=== PATIENT | male | born 1995 | race Caucasian/White ===

== ENCOUNTER 2017-10-24 18:21 | Emergency (ER) | payer BC, SELFPAY ==
[2017-10-24 19:27] VITALS: BP 128/78; PULSE 80; RESP 16; TEMP 36.7; O2SAT 99; BMI 19.1
[2017-10-24 19:31] LABS: UTC Influenza A Antigen Negative (Negative); UTC Influenza B Antigen Negative (Negative)
--- NOTE | 2017-10-24 20:25 | HMH.EDUTC ---
[facility] [place]: Viral URI with cough Disposition: Home, Self-Care Condition on Discharge: Good Instructions: DI for Viral Upper Respiratory Infection -- Adult Additional Instructions: * Monitor Temp. Tylenol and/or Ibuprofen as needed. ER if fever is no less than 101 despite alternating Tylenol and Ibuprofen * Encourage fluids, water, Gatorade, powerade, pedialyte if /toddler/or child * Warm salt water gargles for throat irritation *Warm fluids *Sore throat lozenges *Sleep elevated *humidifier or vaporizer Lots of rest Increase fluids, water, Gatorade, powerade *Bromfed may cause drowsiness. Know how it effect you or your child. Before driving, caring for small children or sending your child to school *Your throat swab was sent to lab for culture. Those results area typically sent to your primary care physician. Be sure to follow up in 2-3 days if no improvement so they can review those results and treat if necessary If you dont have primary care I recommend you get one, but in the mean time you will have to return to a walk in clinic Follow up IMMEDIATELY for new or worsening of symptoms OR no noticeable improvement over the next 48-72 hours. 911 immediately for any life threatening symptoms such as chest pain or difficulty breathing Prescriptions: Brompheniramine/Pseudoephed/Dm [Bromfed DM Cough Syrup 5mL] 10 ml PO Q4H PRN #200 syrup PRN Reason: Cough Referrals: Earnest Rosario MD [Primary Care Provider] - Time of Disposition: 20:29 Medical Decision Making - Medical Records Medical records reviewed: Yes: I reviewed the patient's medical records. Vital Signs: 10/24/17 19:27 Temperature 98.1 F Temperature Source Temporal Artery Scan Pulse Rate [Radial] 80 Respiratory Rate 16 Blood Pressure [Right Arm] 128/78 Blood Pressure Mean [Right Arm] 94 Blood Pressure Source [Right Arm] Automatic Cuff Blood Pressure Position [Right Arm] Sitting 02 Sat by Pulse Oximetry 99 Oxygen Delivery Method Room Air - Lab Data Lab Results 10/24/17 19:31: Influenza Type A Ag Negative, Influenza Type B Ag Negative - Artur Inquiry Pt receiving controlled substance: No Artur was queried for this patient: No [facility] [place] - General Stated complaint: body aches, chills Mode of Arrival: Ambulatory Source of Information: Patient Limitations: No Limitations Description of Symptoms (Recalled from Triage Doc. by RN): C/O SORE THROAT, CHILLS, FEVER HEENT Symptoms (Recalled from RN notes): No Resp Symptoms (Recalled from RN notes): No Skin Symptoms (Recalled from RN notes): No MS Symptoms (Recalled from RN notes): No Functional Status (Recalled from RN notes): NA - History of Present Illness Provider Complaint: Patient state that his son had flu State that he is now having flu like symptoms Having body aches, chills sore throat and sinus drainage State that he was worried that he may have the flu and give it back to his infant son - Related Data Previous Rx's Medication Instructions Recorded Brompheniramine/Pseudoephed/Dm 10 ml PO Q4H PRN #200 syrup 10/24/17 [Bromfed DM Cough Syrup 5mL] Allergies Allergy/AdvReac Type Severity Reaction Status Date / Time No Known Allergies Allergy Unverified 09/22/17 14:06 - Worker's Comp Is this a Worker's Comp case?: No [facility] History I have reviewed the patient's past medical history: Yes Medical History: Denies:: Cancer, Diabetes Mellitus Type 1, Diabetes Mellitus Type 2, MRSA Amputation: No - *Social History Smoking Status: Current every day smoker Alcohol Intake: never - Psychiatric History Expresses thoughts of harming self/others: None Suicide Plan Description: No Plan ROS Obtained: Yes All systems reviewed & no additional complaints - Constitutional Constitutional: Reports chills, Reports fever(s) - ENT Ears, Nose, Mouth, and Throat: Reports sore throat Physical Exam - General General appearance: alert, in no appar
--- NOTE | 2017-10-24 20:28 | ED_ITS ---
[facility] [place] [facility] [place] Clinical Impression: Viral URI with cough Disposition: Home, Self-Care Condition on Discharge: Good Instructions: DI for Viral Upper Respiratory Infection -- Adult Additional Instructions: * Monitor Temp. Tylenol and/or Ibuprofen as needed. ER if fever is no less than 101 despite alternating Tylenol and Ibuprofen * Encourage fluids, water, Gatorade, powerade, pedialyte if /toddler/or child * Warm salt water gargles for throat irritation *Warm fluids *Sore throat lozenges *Sleep elevated *humidifier or vaporizer Lots of rest Increase fluids, water, Gatorade, powerade *Bromfed may cause drowsiness. Know how it effect you or your child. Before driving, caring for small children or sending your child to school *Your throat swab was sent to lab for culture. Those results area typically sent to your primary care physician. Be sure to follow up in 2-3 days if no improvement so they can review those results and treat if necessary If you don? t have primary care I recommend you get one, but in the mean time you will have to return to a walk in clinic Follow up IMMEDIATELY for new or worsening of symptoms OR no noticeable improvement over the next 48-72 hours. 911 immediately for any life threatening symptoms such as chest pain or difficulty breathing Prescriptions: Brompheniramine/Pseudoephed/Dm [Bromfed DM Cough Syrup 5mL] 10 ml PO Q4H PRN # 200 syrup PRN Reason: Cough Referrals: Earnest Rosario MD [Primary Care Provider] - Time of Disposition: 20:29 Medical Decision Making - Medical Records Medical records reviewed: Yes: I reviewed the patient's medical records. Vital Signs: 10/24/17 19:27 Temperature 98.1 F Temperature Source Temporal Artery Scan Pulse Rate [Radial] 80 Respiratory Rate 16 Blood Pressure [Right Arm] 128/78 Blood Pressure Mean [Right Arm] 94 Blood Pressure Source [Right Arm] Automatic Cuff Blood Pressure Position [Right Arm] Sitting 02 Sat by Pulse Oximetry 99 Oxygen Delivery Method Room Air - Lab Data Lab Results 10/24/17 19:31: Influenza Type A Ag Negative, Influenza Type B Ag Negative - Artur Inquiry Pt receiving controlled substance: No Artur was queried for this patient: No [facility] [place] [facility] [place] - General Stated complaint: body aches, chills Mode of Arrival: Ambulatory Source of Information: Patient Limitations: No Limitations Description of Symptoms (Recalled from Triage Doc. by RN): C/O SORE THROAT, CHILLS, FEVER HEENT Symptoms (Recalled from RN notes): No Resp Symptoms (Recalled from RN notes): No Skin Symptoms (Recalled from RN notes): No MS Symptoms (Recalled from RN notes): No Functional Status (Recalled from RN notes): NA - History of Present Illness Provider Complaint: Patient state that his son had flu State that he is now having flu like symptoms Having body aches, chills sore throat and sinus drainage State that he was worried that he may have the flu and give it back to his son - Related Data Previous Rx's Medication Instructions Recorded Brompheniramine/Pseudoephed/Dm 10 ml PO Q4H PRN #200 syrup 10/24/17 [Bromfed DM Cough Syrup 5mL] Allergies Allergy/AdvReac Type Severity Reaction Status Date / Time No Known Allergies Allergy Unverified 09/22/17 14:06 - Worker's Comp Is this a Worker's Comp case?: No [facility] History I have reviewed the patient's pa
[2017-10-24 20:36] VITALS: BP 150/80; PULSE 74; RESP 14; TEMP 36.7; O2SAT 99
== END 2017-10-24 20:37 | disposition home or self-care (01) ==
PROVIDERS: Emergency Provider Nurse Practitioner; PCP Family Medicine
DX: J06.9 Acute upper respiratory infection, unspecified (principal); F17.200 Nicotine dependence, unspecified, uncomplicated
CPT/HCPCS: 87804; 99201

== ENCOUNTER 2020-06-28 18:28 | Emergency (ER) | payer MEDICAID, SELFPAY ==
[2020-06-28 18:39] VITALS: BP 121/55; PULSE 55; RESP 21; TEMP 36.6; O2SAT 98; BMI 19.6
--- NOTE | 2020-06-28 18:48 | HMH.EDUTC ---
[facility] [place] Impression: Dental abscess Disposition: Home, Self-Care Condition on Discharge: Good Instructions: Tooth Abscess Additional Instructions: Warm compresses on jaw area may help with pain and swelling Over the counter Motrin and/or Tylenol for fever and pain Make appointment with Dentist as soon as possible for further treatment and evaluation Return if needed Straight to ER if any life threatening symptoms Prescriptions: Amoxicillin/Potassium Clav [Augmentin 875-125 Tablet] 1 tab PO Q12H 7 Days #14 tab Transmission Status: Pending to [facility] #[id number] Referrals: Earnest Rosario MD [Primary Care Provider] - As needed Ezequiel Escobar [Referring] - Medical Decision Making - Artur Inquiry Pt receiving controlled substance: No Artur was queried for this patient: No Vital Signs: 06/28/20 18:39 Temperature 97.9 F Temperature Source Oral Pulse Rate [Right Brachial] 55 L Respiratory Rate 21 Blood Pressure [Right Arm] 121/55 L Blood Pressure Mean [Right Arm] 77 Blood Pressure Source [Right Arm] Automatic Cuff Blood Pressure Position [Right Arm] Sitting 02 Sat by Pulse Oximetry 98 Oxygen Delivery Method Room Air [facility] [place] - General Stated complaint: possible infection on left inside of mouth Time Seen by Provider: 06/28/20 18:48 Mode of Arrival: Ambulatory Source of Information: Patient Limitations: No Limitations Description of Symptoms (Recalled from Triage Doc. by RN): PATIENT C/O INFECTION TO LEFT SIDE OF MOUTH X 1 WEEK HEENT Symptoms (Recalled from RN notes): Yes Resp Symptoms (Recalled from RN notes): No Skin Symptoms (Recalled from RN notes): No MS Symptoms (Recalled from RN notes): No Functional Status (Recalled from RN notes): WNL - History of Present Illness Provider Complaint: Patient states that he has multiple broken and rotted teeth on his bottom jawline States that he has been trying to get into the dentist but his insurance wont cover it so he hasnt been able to see anyone for it States that he noticed he was starting to have some swelling and redness again in his left lower jaw area so he come in to get it checked - Related Data Previous Rx's Medication Instructions Recorded Amoxicillin/Potassium Clav 1 tab PO Q12H 7 Days #14 tab 06/28/20 [Augmentin 875-125 Tablet] Allergies Allergy/AdvReac Type Severity Reaction Status Date / Time No Known Allergies Allergy Unverified 09/22/17 14:06 - Worker's Comp Is this a Worker's Comp case?: No [facility] History - Hepatitis A Screen Drug use history?: No High risk sexual behaviors?: No History of sexually transmitted infection?: No Currently employed?: No Childcare worker?: No Do you have indoor plumbing?: Yes Do you have electricity?: Yes Attestation statement:: This patient has been screened for Hepatitis A risk factors. I have reviewed the patient's past medical history: Yes Medical History: Denies:: Cancer, Diabetes Mellitus Type 1, Diabetes Mellitus Type 2, MRSA Amputation: No - Social History Smoking Status: Current every day smoker # Packs/Day (cigarettes): 1 Alcohol Intake: never Alcohol Intake Frequency:: holidays/special occasions only Substance Use Type: marijuana Occupational Status: other ROS Obtained: Yes All systems reviewed & no additional complaints, Yes Systems reviewed as appropriate & no additional complaints - Constitutional Constitutional: Reports system reviewed and no additional complaints, except as docu, Denies fever(s) Physical Exam - General General appearance: alert, in no apparent distress - Expanded ENT Exam Teeth exam: Present: other (Multiple broken and decaying teeth noted on left lower jaw with redness and swelling noted in gum area) - Respiratory Respiratory exam: Present: normal lung sounds bilaterally. Absent: respiratory distress - Cardiovascular Cardiovascular exam: Present: regular rate, normal rhythm. Absent: JVD - Abdominal Exam
[2020-06-28 18:55] VITALS: BP 121/55; PULSE 55; RESP 21; TEMP 36.6; O2SAT 98
== END 2020-06-28 18:58 | disposition home or self-care (01) ==
PROVIDERS: Emergency Provider Nurse Practitioner; PCP Family Medicine
DX: K04.7 Periapical abscess without sinus (principal); K02.9 Dental caries, unspecified; F17.210 Nicotine dependence, cigarettes, uncomplicated
CPT/HCPCS: 99201

== ENCOUNTER 2020-09-11 11:45 | Emergency (ER) | payer MEDICAID, SELFPAY ==
[2020-09-11 12:05] VITALS: BP 123/78; PULSE 100; RESP 18; TEMP 36.7; O2SAT 99; BMI 19.6
--- NOTE | 2020-09-11 12:11 | HMH.EDUTC ---
[facility] [place] Clinical Impression: URI (upper respiratory infection) Qualifiers: URI type: unspecified URI Qualified Code(s): J06.9 - Acute upper respiratory infection, unspecified Disposition: Home, Self-Care Condition on Discharge: Good Instructions: DI for Sinusitis, Sinusitis Additional Instructions: *Monitor Temp, Over the counter Motrin or Tylenol as directed/as needed Tylenol every 4 hours and Motrin every 6 hours (as long as your family doctor has told you that you can take it) for fever or pain. and straight to ER if unable to lower temp less than 101.0 after medication given *Warm salt water gargles may help to soothe the throat *Throat Lozenges *Warm fluids like tea with honey may help to soothe the throat *Sleep elevated *Humidifier/Vaporizer Follow up IMMEDIATELY for new or worsening symptoms or no Noticeable improvement over the next 48-72 hours. 911 for difficulty breathing or swallowing * Prescriptions: Azithromycin [Z-Drew 250mg Tab] 250 mg PO DIRECTED #6 tab Transmission Status: Pending to [facility] Referrals: Earnest Rosario MD [Primary Care Provider] - As needed Forms: Work/School Release Time of Disposition: 12:24 Medical Decision Making - Artur Inquiry Pt receiving controlled substance: No Artur was queried for this patient: No Vital Signs: 09/11/20 12:05 Temperature 98.0 F Temperature Source Oral Pulse Rate [Radial] 100 H Respiratory Rate 18 Blood Pressure [Right Arm] 123/78 Blood Pressure Mean [Right Arm] 93 Blood Pressure Source [Right Arm] Automatic Cuff Blood Pressure Position [Right Arm] Sitting 02 Sat by Pulse Oximetry 99 Oxygen Delivery Method Room Air [facility] [place] HPI - General Stated complaint: Pain in Rt side Time Seen by Provider: 09/11/20 12:11 Mode of Arrival: Ambulatory Source of Information: Patient Limitations: No Limitations Description of Symptoms (Recalled from Triage Doc. by RN): COUGH, RIB PAIN HEENT Symptoms (Recalled from RN notes): Yes Resp Symptoms (Recalled from RN notes): No Skin Symptoms (Recalled from RN notes): No MS Symptoms (Recalled from RN notes): No Functional Status (Recalled from RN notes): WNL - History of Present Illness Provider Complaint: Patient state that he has been seen recently at [facility] was dx with pleurisy and was given Naproxen and steriods State that he is still having some pain on and off with cough but now having yellowish colored mucous from his nose like he had before with sinus infection States that today his sinus pressure was worse so he came in - Related Data Previous Rx's Medication Instructions Recorded Amoxicillin/Potassium Clav 1 tab PO Q12H 7 Days #14 tab 06/28/20 [Augmentin 875-125 Tablet] Azithromycin [Z-Drew 250mg Tab] 250 mg PO DIRECTED #6 tab 09/11/20 Allergies Allergy/AdvReac Type Severity Reaction Status Date / Time No Known Allergies Allergy Unverified 09/22/17 14:06 - Worker's Comp Is this a Worker's Comp case?: No [facility] History - Hepatitis A Screen Drug use history?: No High risk sexual behaviors?: No History of sexually transmitted infection?: No Currently employed?: No Childcare worker?: No Do you have indoor plumbing?: Yes Do you have electricity?: Yes Attestation statement:: This patient has been screened for Hepatitis A risk factors. I have reviewed the patient's past medical history: Yes Medical History: Denies:: Cancer, Diabetes Mellitus Type 1, Diabetes Mellitus Type 2, MRSA Amputation: No - Social History Smoking Status: Current every day smoker Tobacco Type: cigarettes # Packs/Day (cigarettes): 1 Alcohol Intake: never Alcohol Intake Frequency:: holidays/special occasions only Substance Use Type: marijuana Occupational Status: employed ROS Obtained: Yes All systems reviewed & no additional complaints, Yes Systems reviewed as appropriate & no additional complaints - Constitutional Constitutional: Reports system r
[2020-09-11 13:06] VITALS: BP 123/78; PULSE 100; RESP 18; TEMP 36.7; O2SAT 99
== END 2020-09-11 13:07 | disposition home or self-care (01) ==
PROVIDERS: Emergency Provider Nurse Practitioner; PCP Family Medicine
DX: J06.9 Acute upper respiratory infection, unspecified (principal); F17.210 Nicotine dependence, cigarettes, uncomplicated
CPT/HCPCS: 99201

== ENCOUNTER 2021-03-19 22:31 | Emergency (ER) | payer MEDICAID, SELFPAY ==
[2021-03-19 22:49] VITALS: BP 147/49; PULSE 72; RESP 18; TEMP 36.8; O2SAT 97; BMI 19.6
[2021-03-19 23:01] VITALS: BP 90/67; PULSE 70; O2SAT 97
--- NOTE | 2021-03-19 23:02 | HMH.EDDENT ---
ED Disposition Clinical Impression: Pain, dental Disposition: Home, Self-Care Condition on Discharge: Good Instructions: DI for Dental Pain Additional Instructions: kep dental appt Referrals: Earnest Rosario MD [Primary Care Provider] - - Critical Care Critical Care Time: No Attestation: On 03/19/21, the high probability of a clinically significant, sudden or life threatening deterioration of the following system(s) required my full and direct attention, intervention and personal management. The time I documented below is in addition to time spent performing reported procedures but includes the following listed in this critical care notation. Medical Decision Making - Medical Records Medical records reviewed: Yes: I reviewed the patient's medical records. - Artur Inquiry Pt receiving controlled substance: No Vital Signs: 03/19/21 22:49 Temperature 98.2 F Temperature Source Oral Pulse Rate [Right] 72 Respiratory Rate 18 Blood Pressure [Right Arm] 147/49 H Blood Pressure Mean [Right Arm] 81 Blood Pressure Source [Right Arm] Automatic Cuff Blood Pressure Position [Right Arm] Sitting 02 Sat by Pulse Oximetry 97 Oxygen Delivery Method Room Air [facility] HPI - General Chief complaint: Dental/Oral Stated complaint: Toothache Time Seen by Provider: 03/19/21 23:02 Mode of Arrival: Ambulatory Source of Information: Patient, Medical Record Limitations: No Limitations Description of Symptoms (Recalled from ER Triage Doc. by RN): Pt states he has a dental appointment on thursday, but states the pain to his left lower molar is to bad to wait. Pt has a single molar left on the right lower jaw and on inspecting it appears decayed. - History of Present Illness HPI Narrative: pt with acute dental pain Complaint: tooth pain Onset (ago): day(s) Duration: constant Severity: moderate Relieving factors: NSAIDs Context: history of dental caries Treatment prior to arrival: none - Related Data Previous Rx's Medication Instructions Recorded Amoxicillin/Potassium Clav 1 tab PO Q12H 7 Days #14 tab 06/28/20 [Augmentin 875-125 Tablet] Azithromycin [Z-Drew 250mg Tab] 250 mg PO DIRECTED #6 tab 09/11/20 Allergies Allergy/AdvReac Type Severity Reaction Status Date / Time No Known Allergies Allergy Unverified 09/22/17 14:06 [facility] History - Hepatitis A Screen Drug use history?: No High risk sexual behaviors?: No History of sexually transmitted infection?: No Currently employed?: No Childcare worker?: No Do you have indoor plumbing?: Yes Do you have electricity?: Yes Attestation statement:: This patient has been screened for Hepatitis A risk factors. I have reviewed the patient's past medical history: Yes Medical History: Denies:: Cancer, Diabetes Mellitus Type 1, Diabetes Mellitus Type 2, MRSA Amputation: No - Social History Smoking Status: Current every day smoker Tobacco Type: cigarettes # Packs/Day (cigarettes): 1 Alcohol Intake: never Alcohol Intake Frequency:: holidays/special occasions only Substance Use Type: marijuana Occupational Status: employed ROS Obtained: Yes All systems reviewed & no additional complaints - Constitutional Constitutional: Denies fever(s) - Eyes Eyes: Denies change in vision - ENT Ears, Nose, Mouth, and Throat: Reports as per HPI, Reports dental pain - Cardiovascular Cardiovascular: Denies chest pain - Respiratory Respiratory: Denies dyspnea - Gastrointestinal Gastrointestingal: Denies: dysphagia - Genitourinary Male Genitourinary: Denies hematuria - Musculoskeletal Musculoskeletal: Denies joint pain - Integumentary/Breasts Skin/Breast: Denies rash - Neurologic Neurologic: Denies tingling/numbness/burning sensations, Denies seizure-like activity Physical Exam - General General appearance: alert - Head Head exam: normocephalic - Eye Eye exam: Present: PERRL, EOMI - ENT ENT exam: Present: mucous membranes mo
[2021-03-19 23:12] VITALS: BP 102/64; PULSE 70; RESP 16; TEMP 36.8; O2SAT 97
== END 2021-03-19 23:15 | disposition home or self-care (01) ==
PROVIDERS: Emergency Provider Emergency Medicine; PCP Family Medicine
DX: K08.89 Other specified disorders of teeth and supporting structures (principal); K02.9 Dental caries, unspecified; F17.210 Nicotine dependence, cigarettes, uncomplicated
CPT/HCPCS: 99281

== ENCOUNTER 2024-06-09 07:13 | Emergency (ER) | payer OTHER, SELFPAY ==
[2024-06-09 07:22] VITALS: BP 128/78; PULSE 56; RESP 14; TEMP 36.5; O2SAT 100; BMI 19.1
[2024-06-09 07:30] VITALS: BP 118/66; PULSE 48; O2SAT 99
--- NOTE | 2024-06-09 07:39 | PC.NURSE ---
Dr. Archuleta at [facility] for pt eval
[2024-06-09 07:45] VITALS: BP 118/66; PULSE 49; O2SAT 100
--- NOTE | 2024-06-09 07:56 | HMH.EDGENADL ---
Discharge Plan Disposition Patient Disposition: Home, Self-Care Chief Complaint: Skin/Abscess/Foreign Body Prescriptions Prescriptions: No Action amoxicillin-pot clavulanate 1 EACH tablet 1 tab PO Q12H 7 Days Qty: 14 0RF azithromycin 250 MG tablet 250 mg PO DIRECTED Qty: 6 0RF Rx Instructions: Take two (2) tablets on day #1, then one (1) tablet day #2 thru #5 Referrals Follow up/Referrals: Earnest Rosario MD [Primary Care Provider] - See instructions Activity Restrictions/Add. Instructions Additional Instructions/Restrictions: Call your family doctor to establish care for this visit to the emergency department and schedule follow-up within 48 hours to ensure improvement. If you have any worsening of your condition or any other concerning signs or symptoms, return to the emergency department or your primary care doctor for further evaluation. Swelling and redness can continue to get worse over the next 48 to 72 hours. If symptoms progress beyond 3 days from now on 06/12, return to the emergency department promptly for further evaluation. Clinical Impressions Clinical Impression: Cellulitis of hand, right Instructions Patient Instructions: DI for Skin Abscess Print Language Print Language: Urdu Discharge ED Provider: Toñito Archuleta General Adult HPI General Chief complaint: Skin/Abscess/Foreign Body Stated complaint: redness and swelling to R hand and arm/insect bite Time Seen by Provider: 06/09/24 07:31 Mode of Arrival: Ambulatory Source of Information: Patient Limitations: No Limitations Description of Symptoms (Recalled from ER Triage Doc. by RN): pt states he pulled a tick from between his L index finger and middle finger. pt states he then made a small cut to clean it out. pt now presents with errythema and edema to his L hand. pt states it has had purulent drainage. History of Present Illness HPI narrative: Please note that above description of symptoms, in this electronic medical record under categorization of recalled from ER triage doctor by RN are reflective of an initial nursing assessment, however, is not reflective of my full history and physical exam that was personally taken and clarified. Consequentially, this preceding description of symptoms, which may include the patient's categorized chief complaint in the EMR, do not reflect my personal clinical impression, and the ultimate description of history of present illness and patient stated complaints should be deferred to this section of the note. Unless stated otherwise or congruent with this section of the note, additional signs, symptoms, or incongruence should be interpreted as inaccurate with my clinical impression. Related Data Previous Rx's ?Medication ?Instructions ?Recorded amoxicillin 875 mg-potassium 1 tab PO Q12H 7 days #14 tabs 06/28/20 clavulanate 125 mg tablet azithromycin 250 mg tablet 250 mg PO DIRECTED #6 tabs 09/11/20 Allergies Allergy/AdvReac Type Severity Reaction Status Date / Time No Known Allergies Allergy Verified 06/09/24 07:28 [facility] Disclaimer: The information contained in this section may have been updated after the patient was seen, as this information can be updated by other users. Social History Smoking Status: Current every day smoker tobacco type: cigarettes packs per day: 1 second hand exposure: Yes alcohol intake: never substance use type: marijuana current occupational status: employed Travel in the last 8 weeks: None ROS Obtained: Yes All systems reviewed & no additional complaints except as documented Physical Exam General General appearance: alert Head Head exam: atraumatic and normocephalic Eye Eye exam: Present normal appearance, PERRL and EOMI Neck Neck exam: Present normal inspection, full ROM and trachea midline Respiratory Respiratory exam: Absent respiratory distress, wheezes, stridor, accessory muscle use or prolonged expiratory phase Cardiovascular Cardiovascular exam: Present other (Pulses equal symmetric in upper and lower extremities) Abdominal Exam Abdominal exam: Present soft; Absent distention, tenderness or pulsatile mass Extremities Exam Extremities exam: Present other (Per MDM); Absent edema Neurological Exam Neurological exam: Present alert, oriented X3 and CN II-XII intact; Absent motor sensory deficit Skin Skin exam: Present warm and dry; Absent diaphoresis or erythema Medical Decision Making Medical Records Medical records reviewed: Yes I reviewed the patient's medical records. Artur Inquiry Pt receiving controlled substance: No Artur was queried for this patient: No Vital Signs: 06/09/24 07:22 06/09/24 07:30 06/09/24 07:45 Temperature 97.7 F Temperature Source Oral Pulse Rate 48 L 49 L Pulse Rate [Left] 56 L Respiratory Rate 14 Blood Pressure 118/66 118/66 Blood Pressure [Right Arm] 128/78 Blood Pressure Mean [Right Arm] 94 Blood Pressure Source [Right Arm] Automatic Cuff Blood Pressure Position [Right Arm] Sitting 02 Sat by Pulse Oximetry 100 99 100 Oxygen Delivery Method Room Air Room Air 06/09/24 09:21 Temperature Temperature Source Pulse Rate 55 L Pulse Rate [Left] Respiratory Rate Blood Pressure 127/74 Blood Pressure [Right Arm] Blood Pressure Mean [Right Arm] Blood Pressure Source [Right Arm] Blood Pressure Position [Right Arm] 02 Sat by Pulse Oximetry 100 Oxygen Delivery Method Room Air Lab Data Lab Results 06/09/24 07:51: WBC 5.7, RBC 4.73, Hgb 14.2, Hct 44.7, MCV 94.5 H, MCH 30.0, MCHC 31.7 L, RDW 13.7, Plt Count 292, MPV 7.9, Neut % (Auto) 45.7, Lymph % (Auto) 40.7, [place] % (Auto) 5.2, Eos % (Auto) 7.0, Baso % (Auto) 1.4, Neut # (Auto) 2.6, Lymph # (Auto) 2.3, [place] # (Auto) 0.3, Eos # (Auto) 0.4, Baso # (Auto) 0.1, Sodium 138, Potassium 3.7, Chloride 105, Carbon Dioxide 28, Anion Gap 8.7, BUN 14, Creatinine 1.00, Estimated Creat Clear 114, Estimated GFR 88, Est GFR ( Amer) 106, Glucose 109 H, Calcium 9.4, Total Bilirubin 1.0, AST 27, ALT 23, Alkaline Phosphatase 48, Total Creatine Kinase 112, Total Protein 7.4, Albumin 4.8, Globulin 2.6, Albumin/Globulin Ratio 1.8 06/09/24 07:51 06/09/24 07:51 Orders (Tests/Meds): ED MEDICATIONS Discontinued Medications Generic Name Dose Route Start Last Admin Trade Name Freq PRN Reason Stop Dose Admin Dalbavancin 1,500 mg/ Dextrose 250 mls @ 500 mls/hr 06/09/24 08:17 06/09/24 09:14 IV 06/09/24 08:18 500 mls/hr ONCE ONE Administration ORDERS Category Date Time Status POCUS Point of Care (ER Only) Stat Exams 06/09/24 07:43 Completed CBC w/Auto Diff [Complete Blood Count Auto Diff] Stat Lab 06/09/24 07:51 Completed CK [Creatine Kinase] Stat Lab 06/09/24 07:51 Completed CMP [Comprehensive Metabolic Panel] Stat Lab 06/09/24 07:51 Completed Medical Decision Narrative: 28-year-old male no relevant medical history presenting with right hand swelling. Patient states that 2 nights ago on 06/07/2024, he pulled a small bug out of the web of his right second and third digit. States he thought it may be a tick, unsure because it was so small, black, pinpoint that he could barely tell what it was. Was not on there more than a few hours. Has not been having fevers, chills, nausea, vomiting, etc., but since yesterday, the swelling has extended from MCPs across palm and toward the wrist. Minimally tender, just swollen. He took 1 Augmentin yesterday, 06/08 in the PM hoping it would help, it did not. No other trauma to the area, or other relevant history. History was obtained via conversation with patient. On arrival, patient hemodynamically stable, alert, oriented x4, appropriate, GCS 15, moving all extremities spontaneously, pupils equal and reactive to light. Full physical exam performed and significant for very well-appearing male no acute distress. Right hand is swollen, not fusiform. Does have edema primarily on dorsal aspect of palm extending from 2nd through 4th metacarpals up toward wrist. Minimal swelling proximal to the wrist. Range of motion of digits intact. Compartments are soft. Distal capillary refill within normal limits, distal neurologic exam within normal limits as well. Differential includes cellulitis, abscess, compartment syndrome, necrotizing soft tissue infection, among others. Patient placed on continuous cardiac monitoring and continuous pulse ox with initial blood pressure 128/78, heart rate 56, saturation 100% on room air. Patient was given 1500 mg dalbavancin for symptomatic management and correction of underlying abnormalities. Workup independently interpreted and significant for nonactionable CBC, chemistry, or CK. On independent interpretation of imaging, soft tissue edema without evidence of gas. No evidence of loculated fluid collection or abscess on bedside [id number] ultrasound. Because of this, no formal imaging was deemed necessary. Because patient at baseline without signs or symptoms of clinical decompensation, deemed appropriate for discharge. Results were relayed to patient who voiced understanding and were agreeable to outpatient management and follow up. I discussed my clinical impression with patient and answered all questions. At this time, the evidence for any other entities in the differential is insufficient to warrant any further testing or ED observation. This was explained as well. Advisory was given that persistent or worsening symptoms require further evaluation. I confirmed the understanding of this discussion. Manager Of Creative Services disclaimer Much of this encounter note is an electronic honing machine operator semiautomatic spoken language to printed text. Electronic honing machine operator semiautomatic of the spoken language may permit errors. Although I have reviewed the note, some errors may still exist. Procedures Limited Ultrasound Indication:: Limited soft tissue ultrasound Indication: Right hand swelling after bug bite Identified structures: Location: Right and Findings: Subcutaneous fat stranding, cobblestoning without loculated fluid collection. Nontender sonographic exam. No evidence of gas Impression: Cellulitis of the right hand Images were saved to permanent archive The study was technically adequate Soft Tissue CPT Codes: CPT Neck: 19689-22 CPT Upper extremity: 01983-39 CPT Axilla: 84885-72 CPT Chest wall: 37646-27 CPT Breast: 46649-65-DE/LT (complete), 07476-34-YD/LT (limited), CPT Upper Back: 07446-51 CPT Lower Back: 17197-40 CPT Abdominal Wall: 45296-24 CPT Pelvic Wall: 39512-22 CPT Lower Extremity: 24547-15 CPT Other Soft Tissue: 30741-94 This study was performed by me, and I personally interpreted all images/videos. Based on my clinical judgement, these images were adequate and did not necessitate further imaging. Critical Care Critical Care Time Critical Care Time: No
[2024-06-09 08:03] LABS: Basophils # 0.1 K/mm3 (0-0.2); Basophils % 1.4 % (0.1-2.0); Eosinophils # 0.4 K/mm3 (0.0-0.4); Hematocrit 44.7 % (42.0-52.0); Hemoglobin 14.2 g/dL (14.1-18.0); Lymphocytes # 2.3 K/mm3 (0.7-4.5); Lymphocytes % 40.7 % (10-50); Mean Corpuscular HGB Conc 31.7 g/dL (31.8-35.4); Mean Corpuscular Volume 94.5 fl (80-94); Mean Platelet Volume 7.9 fl (7.4-10.4); Monocytes # 0.3 K/mm3 (0.1-1.0); Monocytes % 5.2 % (1.7-9.3); Neutrophils # 2.6 K/mm3 (1.8-7.8); Neutrophils % 45.7 % (37.0-80.0); Platelet Count 292 K/mm3 (142-424); Red Blood Count 4.73 M/mm3 (4.60-6.20); Red Cell Distribution Width 13.7 % (11.5-17.5); White Blood Count 5.7 K/mm3 (4.8-10.8)
[2024-06-09 08:13] LABS: Albumin Level 4.8 g/dl (3.5-5.0); Chloride 105 mmol/L (98-107); Potassium 3.7 mmoL/L (3.5-5.1); Sodium 138 mmol/L (136-145)
[2024-06-09 08:16] LABS: Alanine Aminotransferase 23 U/L (12-78); Albumin/Globulin Ratio 1.8 (1.1-1.8); Alkaline Phosphatase 48 U/L (38-126); Anion Gap 8.7 mEq/L (5-15); Aspartate Amino Transferase 27 U/L (17-59); Blood Urea Nitrogen 14 mg/dl (9-20); Calcium 9.4 mg/dl (8.4-10.2); Carbon Dioxide 28 mmol/L (22.0-30.0); Creatine Kinase 112 U/L (55-170); Creatinine Clearance Estimated 114 mL/min (50-200); Estimated Glomerular Filt Rate 88 ml/min (>60); GFR (African American) 106 ML/MIN (>60); Globulin 2.6 g/dL (1.3-3.2); Glucose 109 mg/dl (74-100); Total Protein,Serum 7.4 g/dl (6.3-8.2)
[2024-06-09] MEDS: DALBAVANCIN HCL 1,500 MG in DEXTROSE 5 % IN WATER 250 ML 500 MG IV (09:14)
[2024-06-09 09:21] VITALS: BP 127/74; PULSE 55; O2SAT 100
[2024-06-09 09:43] VITALS: BP 110/74; PULSE 51; RESP 18; TEMP 36.9; O2SAT 100
== END 2024-06-09 09:59 | disposition home or self-care (01) ==
PROVIDERS: Emergency Provider Emergency Medicine; PCP Family Medicine
DX: L03.113 Cellulitis of right upper limb (principal); S60.56 Insect bite (nonvenomous) of hand; W57.XXXS Bitten or stung by nonvenomous insect and other nonvenomous arthropods, sequela; F17.210 Nicotine dependence, cigarettes, uncomplicated; Y92.9 Unspecified place or not applicable
CPT/HCPCS: 80053; 82550; 85025; 96365; 99285; J0875; J7060

== ENCOUNTER 2025-07-29 04:41 | Emergency (ER) | payer OTHER, SELFPAY ==
--- OUTSIDE RECORDS SUMMARY | 2025-07-29 04:47 | XMS_ITS | Encounter Summary ---
Author Organization [employer] ([place], [place], [place], [place]) Address [address] [place] [address] Care Team Providers Care Ob/Gyn Physician Name Role Phone Unavailable Primary Care Provider Unavailabl e Encounter Details Date Type Department Care Team (Late st Contact Info) Description 09/04/[address] [facility] [place] [facility] [place] [address] ProviderTroy MD [facility] [place] [address] Social History Tobacco Use Types Packs/Day Years Used Date Smoking Tobacco: Never Assessed Sex and Gender Information Value Date Recorded Sex Assigned at Male 04/03/2022 5:53 PM CDT Legal Sex Male 7:15 PM CDT Gender Identity Male 04/03/2022 5:53 PM CDT Sexual Orientation Not on file documented as of this encounter Miscellaneous Notes * Cerner Conversion Note - Troy Choi MD - 09/04/2020 8:39 AM INSTALLER MOLDING AND TRIM Patient: ISABEL FAUST Age: 25 years Sex: Male : 1995 Associated Diagnoses: Pleurisy Author: ANITA PÉREZ MD Basic Information Additional information: Chief Complaint from Nursing Triage Note : Chief Complaint 09/04/2020 8:19 EST Chief Complaint pleuritic chest pain x4 weeks. pt has been to multiple ERs for the same s/sx . History of Present Illness The patient presents with chest pain. The onset was 4 weeks ago. The course/duration of symptoms is fluctuating in intensity. Location: Right lateral chest. Radiating pain: none. The character of symptoms is sharp and pleuritic. The degree at onset was minimal. The degree at maximum was moderate. The degree at present is moderate. There are exacerbating factors including movement and breathing. Risk factors consist of none. Prior episodes: none. Therapy today None. Associated symptoms: none. Review of Systems Constitutional symptoms: No fever, no chills, no sweats, no weakness, no fatigue. Skin symptoms: No rash, Eye symptoms: Vision unchanged, no pain, no discharge, no blurred vision. ENMT symptoms: No ear pain, no sore throat, no nasal congestion. Respiratory symptoms: No shortness of breath, no cough. Cardiovascular symptoms: Chest pain, no palpitations, no syncope. Gastrointestinal symptoms: No abdominal pain, no nausea, no vomiting, no diarrhea. Genitourinary symptoms: No dysuria, no hematuria. Musculoskeletal symptoms: No back pain, no Joint pain. Neurologic symptoms: No headache, no dizziness, no numbness, no weakness. Health Status Allergies: Allergic Reactions (Selected) No Known Allergies. Medications: (Selected) Inpatient Medications Ordered SOLU-Medrol: 125 mg, IntraMuscular, 1-Time Toradol: 60 mg, IntraMuscular, 1-Time. Past Medical/ Family/ Social History Surgical history: No active procedure history items have been selected or recorded., Reviewed as documented in chart. Family history: No family history items have been selected or recorded., Reviewed as documented in chart. Social history: Social & Psychosocial Habits No Data Available , Reviewed as documented in chart. Problem list: No qualifying data available , per nurse's notes. Physical Examination Vital Signs Vital Signs/Vital Measures 09/04/2020 8:23 EST Systolic Blood Pressure 151 mmHg HI Diastolic Blood Pressure 82 mmHg Temperature Source Oral Temperature Mode Fahrenheit Temperature, Fahrenheit 98.2 Deg F Clinical Temperature, C 36.8 Deg C Peripheral Pulse Rate 63 bpm Respiratory Rate 16 Breaths/Min Oxygen Saturation 100 % Oxygen Therapy Mode Room air 09/04/2020 8:21 EST Temperature Source Oral Temperature Mode Fahrenheit Temperature, Fahrenheit 98.8 Deg F Clinical Temperature, C 37.1 Deg C Peripheral Pulse Rate 53 bpm LOW Respiratory Rate 20 Breaths/Min . Measurements 09/04/2020 8:19 EST Height Source Stated Height Entry Format [place] Height/Length, [place] (ft) 6 ft Height/Length [place] 6 Inch CLINICALHEIGHT 198.12 cm [place] Body Weight 90.31 kg Weight Source, ED Critical estimated dosing weight Weight Entry Format [place] Weight [place] lb 170 lb CLINICALWEIGHT 77.27 kg Body Surface Area (BSA) 2.11 m2 Body Mass Index 19.7 kg/m2 . Oxygen Saturation 09/04/2020 8:23 EST Oxygen Saturation 100 % . General: Alert, no acute distress. Skin: Warm. Head: Normocephalic. Neck: Supple. Eye: Sclera: not icteric. Ears, nose, mouth and throat: Oral mucosa moist. Cardiovascular: Regular rate and rhythm, No murmur, Normal peripheral perfusion, No edema. Respiratory: Lungs are clear to auscultation, respirations are non-labored, breath sounds are equal. Chest wall: No tenderness. Back: Nontender. Gastrointestinal: Soft, Nontender, Non distended, Normal bowel sounds. Neurological: No focal neurological deficit observed. Lymphatics: No lymphadenopathy. Psychiatric: Cooperative. Medical Decision Making Documents reviewed: Emergency department nurses' notes. Electrocardiogram: Time 09/04/2020 08:21:00, rate 58, No ST changes, no ectopy, normal OH & QRS intervals, EP Interp, sinus bradycardia, no acute ischemic changes, no STEMI. Radiology results: Radiology Results (Last 48 hours) [id number] -- 09/04/2020 08:13 CR Chest 2 Vws (09/04/2020 08:49) Result: TWO-VIEW CHEST. HISTORY: Right-sided pleuritic chest pain.COMPARISON: None.FINDINGS: The cardiac silhouette is normal in size. The mediastinumis unremarkable. The lungs are clear. There is no pneumothorax. There isno acute osseous abnormality. IMPRESSION: No acute cardiopulmonary process.Images reviewed, interpreted, and dictated by Dr. April Keen.Transcribed by Veronica Ace PA-C. . Impression and Plan Diagnosis Pleurisy - Discharge, Medical Plan Condition: Improved, Stable. Disposition: Discharged Admit/Transfer/Discharge: Discharge (Order): Start: 09/04/2020 9:22 EST, Discharge to: Home. Prescriptions: Prescription Tool Engine Lathe Set Up Operator Pharmacy: naproxen 500 mg oral tablet (Prescribe): 1 Tab, Oral, BID, PRN: as needed for pain, 20 Tab, 0 Refill(s) predniSONE 10 mg oral tablet (Prescribe): See Instructions, Take 60mg po daily x 3 days, then 40mg po daily x 3 days, then 20mg po daily x 3 days, then 10mg po daily x 3 days. Disp: QS x 12 days, 1 Kit, 0 Refill(s). Patient was given the following educational materials: Pleurisy. Follow up with: ; Find a Doc ([facility]) Within 2 to 3 days. Counseled: Patient, Regarding diagnosis, Regarding diagnostic results, Regarding treatment plan, Regarding prescription, Patient indicated understanding of instructions. Notes: Patient presented with 4 weeks of right sided pleuritic chest pain. Afebrile vital signs are stable. EKG and chest x-ray within normal limits. No hypoxia or respiratory distress. Given Solu-Medrol and Toradol in the ER. Discharged home with prescription for prednisone taper and naproxen. Follow-up with PCP and given clear return precautions.. documented in this encounter Plan of Treatment Not on file documented as of this encounter Visit Diagnoses Not on filedocumented in this encounter
--- OUTSIDE RECORDS SUMMARY | 2025-07-29 04:47 | XMS_ITS | Encounter Summary ---
Author Organization [employer] ([place], [place], [place], [place]) Address [address] [place] [address] Care Team Providers Care Water Pollution Scientist Name Role Phone Unavailable Primary Care Provider Unavailabl e Encounter Details Date Type Department Care Team (Late st Contact Info) Description 09/04/2020 Transcribed Document [facility] [place] [facility] [place] [address] ProviderTroy MD [facility] [place] [address] Social History Tobacco Use Types Packs/Day Years Used Date Smoking Tobacco: Never Assessed Sex and Gender Information Value Date Recorded Sex Assigned at Male 04/03/2022 5:53 PM CDT Legal Sex Male 7:15 PM CDT Gender Identity Male 04/03/2022 5:53 PM CDT Sexual Orientation Not on file documented as of this encounter Miscellaneous Notes * Cerner Conversion Note - Troy ProviderMD - 09/04/2020 8:13 AM STAINING MACHINE OPERATOR ED Assessment Entered On: 09/04/2020 9:30 EST Performed On: 09/04/2020 8:30 EST by Georgette Michele RN ED Quick Look Assessment Level of Consciousness : Alert, Awake Affect/Behavior : Appropriate, Calm, Cooperative Orientation : Oriented x 4 Skin Temperature : Warm Skin Description : Normal for ethnicity Georgette Michele RN - 09/04/2020 9:27 EST ED General-Functional Assess Information Obtained From : Patient Preferred Communication Mode : Verbal Communication Barrier : None Primary Language : Kiswahili Any Spiritual/Cultural Needs or Requests : No Currently in Unsafe Situation : No Georgette Michele RN - 09/04/2020 9:27 EST Social Habits Smoking Status : 10 or more cigarettes (1/2 pack or more)/day in last 30 days Smokeless Tobacco Status : Never Desires Tobacco Cessation Medication : No Reason for No Tobacco Cessation Medication : ED/procedural patient only Desires Tobacco Cessation Calc : 1 Georgette Michele RN - 09/04/2020 9:27 EST Social History (As Of: 09/04/2020 09:30:43 EST) Tobacco: 10 or more cigarettes (1/2 pack or more)/day in last 30 days Smoking Status. (Last Updated: 09/04/2020 09:28:51 EST by Georgette Michele, RN) Alcohol: Alcohol Use History No. (Last Updated: 09/04/2020 09:28:51 EST by Georgette Michele, RN) Substance Abuse: Drug Use Hx: No. Use in Last 12 Months: No. (Last Updated: 09/04/2020 09:28:51 EST by Georgette Michele, RN) Cardiovascular ASMT, ED Cardiovascular Assessment WDL : WDStanislav with exceptions Cardiovascular Symptoms : Tightness with activity EKG Completed by : Georgette Michele RN EKG Communicated to Provider : ANITA PÉREZ MD Heart Sounds : S1/S2 Detailed Cardiovascular Assessment : Open Georgette Michele RN - 09/04/2020 9:27 EST Cardiovascular ASMT, Detailed Cardiac Rhythm : Normal sinus rhythm Monitoring Leads : II Georgette Michele RN - 09/04/2020 9:27 EST Respiratory Respiratory Assessment WDL : WDGeorgette Pelayo RN - 09/04/2020 9:27 EST Neurologic ASMT, ED Neurologic Assessment WDL : WDGeorgette Pelayo RN - 09/04/2020 9:27 EST documented in this encounter Plan of Treatment Not on file documented as of this encounter Visit Diagnoses Not on filedocumented in this encounter
--- OUTSIDE RECORDS SUMMARY | 2025-07-29 04:47 | XMS_ITS | Encounter Summary ---
Author Organization [employer] ([place], [place], [place], [place]) Address [address] [place] [address] Care Team Providers Care Cook Restaurant Name Role Phone Unavailable Primary Care Provider Unavailabl e Encounter Details Date Type Department Care Team (Late st Contact Info) Description 09/04/2020 Transcribed Document [facility] [place] Family Medicine [facility] [place] [address] ProviderTroy MD [facility] [place] [address] Social History Tobacco Use Types [...] - Troy ProviderMD - 09/04/2020 8:13 AM HONING MACHINE OPERATOR ED Triage Entered On: 09/04/2020 8:21 EST Performed On: 09/04/2020 8:19 EST by Ayana Jeffrey RN ED Triage Across the Room Chief Complaint : pleuritic chest pain x4 weeks. pt has been to multiple ERs for the same s/sx Triage Date/Time : 09/04/2020 8:19 EST Ayana Jeffrey RN - 09/04/2020 8:19 EST DCP GENERIC CODE Tracking Acuity : 3 - Urgent Tracking Group [facility] ED Ayana Jeffrey RN - 09/04/2020 8:19 EST Mode of Arrival : Ambulatory Transported to ED by : Private vehicle To Room Via : Ambulate Accompanied By : Unaccompanied Height & Weight : Document ED Allergies : Document ED Reason for Visit : Document Tetanus Immunization : Unknown Office Equipment Technician Needed : No Ayana Jeffrey RN - 09/04/2020 8:19 EST Infectious Disease History Has the patient ever been tested for COVID-19? : Yes, Patient stated results Negative Date of COVID-19 test known? : No Does patient have symptoms of COVID-19? : No COVID19 Screening : No Experiencing Infectious Disease Symptoms : No symptoms Physical contact outside [place] in the last 30 days : No Infectious Disease History : None Tuberculosis Symptoms : None Ayana Jeffrey RN - 09/04/2020 8:19 EST Allergy (As Of: 09/04/2020 08:21:19 EST) Allergies (Active) No Known Allergies Estimated Onset Date: Unspecified ; Created By: Ayana Jeffrey RN; Reaction Status: Active ; Category: Drug ; Substance: No Known Allergies ; Type: Allergy ; Updated By: Ayana Jeffrey RN; Reviewed Date: 09/04/2020 8:20 EST Diagnosis Control ED (As Of: 09/04/2020 08:21:19 EST) Diagnoses(Active) Chest pain - Pleuritic Date: 09/04/2020 ; Diagnosis Type: Reason For Visit ; Confirmation: Complaint of ; Clinical Dx: Chest pain - Pleuritic ; Classification: Medical ; Clinical Service: Emergency medicine ; Code: PNED ; Probability: 0 ; Diagnosis Code: [id number] Rib/trunk pain-swelling Date: 09/04/2020 ; Diagnosis Type: Reason For Visit ; Confirmation: Complaint of ; Clinical Dx: Rib/trunk pain-swelling ; Classification: Medical ; Clinical Service: Emergency medicine ; Code: PNED ; Probability: 0 ; Diagnosis Code: [id number] ED Height and Weight Height Source : Stated Height Entry Format : [place] Height, Feet : 6 ft(Converted to: 183 cm, 72 Inch) Height, Inches : 6 Inch(Converted to: 0 ft 6 Inch, 15.24 cm) Clinical Height : 198.12 cm Weight Source, ED : Critical estimated dosing weight Weight Entry Format : [place] Weight, Pounds : 170 lb Clinical Dosing Weight : 77.27 kg Body Surface Area (BSA) : 2.11 m2 Body Mass Index : 19.7 kg/m2 [place] Body Weight (IBW) : 90.31 kg Ayana Jeffrey RN - 09/04/2020 8:19 EST Electronically signed by Ying, [facility] Conversion Revenue Field Auditor Cerner at 01/22/2023 1:08 PM CDT documented in this encounter Plan of Treatment Not on file documented as of this encounter Visit Diagnoses Not on filedocumented in this encounter
--- OUTSIDE RECORDS SUMMARY | 2025-07-29 04:47 | XMS_ITS | Encounter Summary ---
Author Organization [employer] ([place], [place], [place], [place]) Address [address] [place] [address] Care Team Providers Care Machine Fastener Name Role Phone Unavailable Primary Care Provider Unavailabl e Encounter Details Date Type Department Care Team (Late st Contact Info) Description 09/04/2020 Transcribed Document [facility] [place] [address] [place] [address] ProviderTroy MD [facility] [place] [address] Social History Tobacco Use Types Packs/Day Years Used Date Smoking Tobacco: Never Assessed Sex and Gender Information Value Date Recorded Sex Assigned at Male 04/03/2022 5:53 PM CDT Legal Sex Male 7:15 PM CDT Gender Identity Male 04/03/2022 5:53 PM CDT Sexual Orientation Not on file documented as of this encounter Miscellaneous Notes * [employer] Conversion Note - Historical ProviderMD - 09/04/2020 9:46 AM DIGITAL ANALYTICS MANAGER CR Chest 2 Vws Ordered: 09/04/2020 Auth (Verified) Reason for Exam: right sided pleuritic pain 09/04/2020 09:44 09/04/2020 09:46 (SUMIT GAMBLE PA-C) Reviewed by Provider, No further action required x1 documented in this encounter Plan of Treatment Not on file documented as of this encounter Visit Diagnoses Not on filedocumented in this encounter
--- OUTSIDE RECORDS SUMMARY | 2025-07-29 04:47 | XMS_ITS | Encounter Summary ---
Author Organization [employer] ([place], [place], [place], [place]) Address [address] [place] [address] Care Team Providers Care Black Top Spreader Machine Operator Name Role Phone Unavailable Primary Care Provider Unavailabl e Encounter Details Date Type Department Care Team (Late st Contact Info) Description 09/04/2020 Transcribed Document [facility] [place] Family Medicine [address] [place] [address] ProviderTroy MD [address] [place] [address] Social History Tobacco Use Types [...] Conversion Note - Troy ProviderMD - 09/04/2020 8:21 AM LADDER OPERATOR Vital Signs ED Entered On: 09/04/2020 8:21 EST Performed On: 09/04/2020 8:21 EST by Ayana Jeffrey RN Vital Signs ED Temperature Source : Oral Temperature Mode : Fahrenheit Temperature, Fahrenheit : 98.8 Deg F Clinical Temperature, C : 37.1 Deg C Peripheral Pulse Rate : 53 bpm (LOW) Respiratory Rate : 20 Breaths/Min Ayana Jeffrey RN - 09/04/2020 8:21 EST documented in this encounter Plan of Treatment Not on file documented as of this encounter Visit Diagnoses Not on filedocumented in this encounter
--- OUTSIDE RECORDS SUMMARY | 2025-07-29 04:47 | XMS_ITS | Encounter Summary ---
Author Organization [employer] ([place], [place], [place], [place]) Address [address] [place] [address] Care Team Providers Care Choral Teacher Name Role Phone Unavailable Primary Care Provider Unavailabl e Encounter Details Date Type Department Care Team (Late st Contact Info) Description 09/04/2020 Transcribed Document [facility] [place] Family Medicine [address] [place] [address] ProviderTroy MD [address] [place] [address] Social History Tobacco Use Types [...] Conversion Note - Historical ProviderMD - 09/04/2020 9:44 AM WORM RAISER [facility] [place] [id number] Visit Date/Time: 09/04/2020 09:44:57 ISABEL SANTIAGO The above patient was seen in the hospital today and needs to be excused from work/school until Return to Work/School Date: 09/05/2020 Electronically signed by Ying, [facility] Conversion Professional Healthcare Representative Cerner at 01/22/2023 12:57 PM CDT documented in this encounter Plan of Treatment Not on file documented as of this encounter Visit Diagnoses Not on filedocumented in this encounter
--- OUTSIDE RECORDS SUMMARY | 2025-07-29 04:47 | XMS_ITS | Encounter Summary ---
Author Organization [employer] ([place], [place], [place], [place]) Address [address] [place] [address] Care Team Providers Care Railcar Brake Operator Name Role Phone Unavailable Primary Care Provider Unavailabl e Encounter Details Date Type Department Care Team (Late st Contact Info) Description 09/04/2020 Transcribed Document [facility] [place] Family Medicine [address] [place] [address] ProviderTroy MD [address] [place] [address] Social History Tobacco Use Types [...] Conversion Note - Historical ProviderMD - 09/04/2020 9:24 AM PANEL EDGE SEALER Electronically signed by Ying, [facility] Conversion Undercover Operator Cerner at 01/22/2023 1:03 PM CDT documented in this encounter Plan of Treatment Not on file documented as of this encounter Visit Diagnoses Not on filedocumented in this encounter
--- OUTSIDE RECORDS SUMMARY | 2025-07-29 04:47 | XMS_ITS | Encounter Summary ---
Author Organization [employer] ([place], [place], [place], [place]) Address [address] [place] [address] Care Team Providers Care Roll Tension Tester Name Role Phone Unavailable Primary Care Provider Unavailabl e Encounter Details Date Type Department Care Team (Late st Contact Info) Description 09/04/2020 Transcribed Document [facility] [place] [facility] [place] [address] ProviderTroy MD [facility] [place] [address] Social History Tobacco Use Types [...] Conversion Note - Historical ProviderMD - 09/04/2020 9:54 AM ORNAMENTER ED Discharge Entered On: 09/04/2020 9:54 EST Performed On: 09/04/2020 9:54 EST by Georgette Michele door clamp operator Process Patient Disposition : Discharge Personal Belongings With Patient : Yes Patient Education Completed : Yes Teaching Evaluation : Verbalizes understanding IV Discontinued : Not applicable Nursing Documentation Completed : Yes Georgette Michele RN - 09/04/2020 9:54 EST ED Discharge Discharge To : Home with ambulatory/outpatient follow-up Mode Of Departure : Ambulatory Accompanied By : Unaccompanied Discharge Instructions Reviewed With, Opportunity For Questions Given : Patient Prescriptions Given to Patient : Yes Number of Prescriptions Given : 2 Georgette Michele RN - 09/04/2020 9:54 EST documented in this encounter Plan of Treatment Not on file documented as of this encounter Visit Diagnoses Not on filedocumented in this encounter
--- OUTSIDE RECORDS SUMMARY | 2025-07-29 04:47 | XMS_ITS | Encounter Summary ---
Author Organization [employer] ([place], [place], [place], [place]) Address [address] [place] [address] Care Team Providers Care Stationary Equipment Mechanic Name Role Phone Unavailable Primary Care Provider Unavailabl e Encounter Details Date Type Department Care Team (Late st Contact Info) Description 09/04/2020 Transcribed Document [facility] [place] [address] [place] [address] ProviderTroy MD [address] [place] [address] Social History Tobacco Use Types [...] Note - Troy Choi MD - 09/04/2020 9:31 AM ACCOUNT SPECIALIST [facility] [address] [place] [id number] ISABEL FAUST :1995 Visit Time:09/04/2020 Your Visit Summary Your Care Team Primary Provider: ANITA PÉREZ Secondary Provider: Your Diagnosis Chest pain - Pleuritic Pleurisy Rib/trunk pain-swelling Medical Information You may obtain a copy of your Emergency Department visit from Medical Records by calling the hospital phone number listed above and asking to be directed to the Medical Records Department. If you had special tests, such as EKG???s or X-rays, the interpretation of your tests given to you by the Emergency Department Physician is a preliminary report. Some fractures and illnesses fail to show up on preliminary tests. These will be reviewed again and we will call you if there are any new suggestions. If your symptoms continue notify your physician. After you leave, you should follow the instructions provided. What to do next Follow-Up Appointments Follow Up with [facility] ([facility]) When Within 2 to 3 days Where: [place] [address]- [phone] Business (1) Allergies No Known Allergies Immunizations This Visit No Immunizations Found Medications What How Much When Instructions Next Dose naproxen (naproxen 500 mg oral tablet) 1 Tablet(s) Oral Two Times A Day as needed for as needed for pain Printed Prescription predniSONE (predniSONE 10 mg oral tablet) See instructions Take 60mg po daily x 3 days, then 40mg po daily x 3 days, then 20mg po daily x 3 days, then 10mg po daily x 3 days. Disp: QS x 12 days Printed Prescription The home medications listed are only as accurate as the information you provided. Please continue taking all of your medications prescribed by your Primary Care Provider unless specifically told to change or discontinue the medication. Please direct any questions regarding your home medications to your Primary Care Provider. Take your medications faithfully. Do NOT skip medication. Do NOT stop taking medications without the direction of a physician. Carry a list of your medications with you at all times, and take this medication list with you to your first follow up visit. Report any side effects. Avoid herbal remedies unless discussed with your physician. As part of your treatment plan, your physician may have prescribed a limited course of a controlled substance. This medication may be given to help people with moderate or severe pain or for other medical conditions, but there are risks involved with treatment. Common side effects may include nausea, constipation, drowsiness, sweating, itching, dry mouth, and rash. More serious side effects may include cognitive and motor impairment, like problems with thinking, concentrating, alertness, and movement (e.g. slowed reflexes), and driving and operating heavy machinery can be dangerous. It is important for you to talk to your physician if you have these side effects or questions. These controlled substances can produce physical dependence and be habit-forming if taken for an extended period of time, which means that the body has gotten used to them and may experience withdrawal symptoms if they are abruptly stopped. Withdrawal symptoms can include runny nose, sweating, goose bumps, diarrhea, abdominal cramping, rapid heartbeat, difficulty sleeping, and nervousness. Please dispose of unused and medications per pharmacy guidance. Test Results Laboratory or Other Results This Visit (last charted value for your 09/04/2020 visit) No Laboratory or Other Results This Visit Education Materials Pleurisy Pleurisy, also called pleuritis, is irritation and swelling (inflammation) of the linings of the lungs. The linings of the lungs are called pleura. They cover the outside of the lungs and the inside of the chest wall. There is a small amount of fluid (pleural fluid) between the pleura that allows the lungs to move in and out smoothly when you breathe. Pleurisy causes the pleura to be rough and dry and to rub together when you breathe, which is painful. In some cases, pleurisy can cause pleural fluid to build up between the pleura (pleural effusion). What are the causes? Common causes of this condition include: ??? A lung infection caused by bacteria or a virus. ??? A blood clot that travels to the lung (pulmonary embolism). ??? Air leaking into the pleural space (pneumothorax). ??? Lung cancer or a lung tumor. ??? A chest injury. ??? Diseases that can cause lung inflammation. These include rheumatoid arthritis, lupus, sickle cell disease, inflammatory bowel disease, and pancreatitis. ??? Heart or chest surgery. ??? Lung damage from inhaling asbestos. ??? A lung reaction to certain medicines. Sometimes the cause is unknown. What are the signs or symptoms? Chest pain is the main symptom of this condition. The pain is usually on one side. Chest pain may start suddenly and be sharp or stabbing. It may become a constant dull ache. You may also feel pain in your back or shoulder. The pain may get worse when you cough, take deep breaths, or make sudden movements. Other symptoms may include: ??? Shortness of breath. ??? Noisy breathing (wheezing). ??? Cough. ??? Chills. ??? Fever. How is this diagnosed? This condition may be diagnosed based on: ??? Your medical history. ??? Your symptoms. ??? A physical exam. Your health care provider will listen to your breathing with a stethoscope to check for a rough, rubbing sound (friction rub). If you have pleural effusion, your breathing sounds may be muffled. ??? Tests, such as: ? Blood tests to check for infections or diseases and to measure the oxygen in your blood. ? Imaging studies of your lungs. These may include a chest X-ray, ultrasound, MRI, or CT scan. ? A procedure to remove pleural fluid with a needle for testing (thoracentesis). How is this treated? Treatment for this condition depends on the cause. Pleurisy that was caused by a virus usually clears up within 2 weeks. Treatment for pleurisy may include: ??? NSAIDs to help relieve pain and swelling. ??? Antibiotic medicines, if your condition was caused by a bacterial infection. ??? Prescription pain or cough medicine. ??? Medicines to dissolve a blood clot, if your condition was caused by pulmonary embolism. ??? Removal of pleural fluid or air. Follow these instructions at home: Medicines ??? Take [id number] and prescription medicines only as told by your health care provider. ??? If you were prescribed an antibiotic, take it as told by your health care provider. Do not stop taking the antibiotic even if you start to feel better. Activity ??? Rest and return to your normal activities as told by your health care provider. Ask your health care provider what activities are safe for you. ??? Do not drive or use heavy machinery while taking prescription pain medicine. General instructions ??? Monitor your pleurisy for any changes. ??? Take deep breaths often, even if it is painful. This can help prevent lung infection (pneumonia) and collapse of lung tissue (atelectasis). ??? When lying down, lie on your painful side. This may reduce pain. ??? Do not smoke. If you need help quitting, ask your health care provider. ??? Keep all follow-up visits as told by your health care provider. This is important. Contact a health care provider if: ??? You have pain that: ? Gets worse. ? Does not get better with medicine. ? Lasts for more than 1 week. ??? You have a fever or chills. ??? Your cough or shortness of breath is not improving at home. ??? You cough up pus-like (purulent) secretions. Get help right away if: ??? Your lips, fingernails, or toenails darken or turn blue. ??? You cough up blood. ??? You have any of the following symptoms that get worse: ? Difficulty breathing. ? Shortness of breath. ? Wheezing. ??? You have pain that spreads into your neck, arms, or jaw. ??? You develop a rash. ??? You vomit. ??? You faint. Summary ??? Pleurisy is inflammation of the linings of the lungs (pleura). ??? Pleurisy causes pain that makes it difficult for you to breathe or cough. ??? Pleurisy is often caused by an underlying infection or disease. ??? Treatment of pleurisy depends on the cause, and it often includes medicines. This information is not intended to replace advice given to you by your health care provider. Make sure you discuss any questions you have with your health care provider. Document Released: 09/21/2006 Document Revised: 09/03/2018 Document Reviewed: 06/15/2017 [employer] Patient Education ?? 2020 [employer]. Emergency Awareness and Preventative Care STROKE is an EMERGENCY Every Minute Counts Act FAST and Check for these signs: FACE Does the face look uneven? ARM Does one arm drift down? SPEECH Does their speech sound strange? TIME Call at any sign of stroke Stroke Risk Factors Atrial Fibrillation (irregular heartbeat) Diabetes Family history of stroke Heart Disease Heavy alcohol use High Blood Pressure High Cholesterol Physical inactivity and obesity Smoking Cigarette Smoking The facts are clear, cigarette smoking will shorten your life. Smoking can cause many illnesses along the way. As a healthcare provider, we recommend that you stop smoking. Assistance with quitting is available by contacting 5-084-FMZM-NOW. This is a free resource providing counseling, support, and referral. Or you may contact your personal physician. National Suicide Prevention Lifeline: The National Suicide Prevention Lifeline is a national network of local crisis centers that provides free and confidential emotional support to people in suicidal crisis or emotional distress 24 hours a day, 7 days a week. Don't Wait! Stop a Heart Attack Before it Starts What is a heart attack? A heart attack is damage or to a part of the heart from severely decreased or lack of blood flow to the heart. Over time, arteries can become narrow from the buildup of fat and cholesterol, which is called plaque. The plaque can rupture causing a blood clot to form. When the blood clot forms, the artery can become severely narrowed or completely blocked, causing a heart attack. Heart attack is the leading cause of in the [place]. 85% of muscle damage occurs within the first 2 hours. Delay in the recognition of heart attack symptoms increases the chances of . Know the early symptoms of a heart attack: Nausea Feeling of fullness in chest Jaw Pain Pain that travels down one or both arms Fatigue/being tired Anxiety Back Pain Chest pressure, squeezing, or discomfort Shortness of breath Sweating, or a cold sweat Feeling of impending doom There are unusual signs of a heart attack, too! Women, the elderly, and diabetics may present with atypical symptoms: Fainting/dizziness Weakness Confusion Risk Factors for a Heart Attack Some heart disease risk factors, such as age and family history, cannot be changed. Others, like smoking and lack of exercise, can be changed. Smoking High Cholesterol High Blood Pressure Family History Obesity Age Gender (Males are at higher risk) Lack of Exercise Diabetes Diet Stress Excessive Alcohol Intake If you or someone you know is experiencing the signs and symptoms of a heart attack, DON???T DELAY. Call immediately and seek help. If someone collapses, perform CPR! Do not attempt to drive if you are having symptoms of heart attack. Hands-Only CPR Why Hands-Only CPR? Hands-Only CPR has been shown to be as effective as conventional CPR for cardiac arrests that occur outside of a hospital. Survival depends on immediately receiving CPR from someone nearby. How do you perform Hands-Only CPR? There are two easy steps: Call if you see a teen or adult collapse Push hard and fast in the center of the chest at a beat of 100 beats per minute. Save a life! 4 WAYS TO GET AHEAD OF SEPSIS SEPSIS is a MEDICAL EMERGENCY. Time matters! Infections put you and your family at risk for a life-threatening condition called sepsis. Sepsis is the body's extreme response to an infection. It is life-threatening, and without timely treatment, sepsis can rapidly lead to tissue damage, organ failure, and . Sepsis happens when an infection you already have-in your skin, lungs, urinary tract or somewhere else-triggers a chain reaction throughout your body. 1 PREVENT INFECTIONS Take good care of chronic conditions. Talk to your doctor about getting the recommended vaccines. 2 PRACTICE GOOD HYGIENE Wash your hands frequently. Keep cuts or open sores clean and covered until they are healed. 3 KNOW THE SYMPTOMS Confusion or disorientation Shortness of breath High heart rate Fever, shivering, or feeling very cold Extreme pain or discomfort Clammy or sweaty skin 4 ACT FAST Get medical care IMMEDIATELY if you suspect sepsis or if you have an infection that is not getting better or is getting worse. To learn more about sepsis and how to prevent infections, visit www.cdc.gov/sepsis. The examination and treatment you have received in the Emergency Department has been done to provide an appropriate evaluation and stabilizing treatment on an emergency basis only. Given the limited resources, it is not meant to be a substitute for complete medical care. The follow-up doctor you named will receive a copy of your records and all test reports. IT IS IMPORTANT THAT YOU SCHEDULE A FOLLOW-UP APPOINTMENT AND ARE RE-EVALUATED. You should report any new complaints, symptoms, or remaining problems at that time. IT IS IMPOSSIBLE FOR THE EMERGENCY DEPARTMENT TO RECOGNIZE AND TREAT ALL ELEMENTS OF INJURY OR ILLNESS IN A SINGLE VISIT. If you have been referred to a specialist physician, it means that we believe you may have a condition that requires the expertise of a specialist. These physicians work in partnership with the hospital and have agreed to see referred patients in their office for further evaluation. KEEP IN MIND THAT THE SPECIALIST HAS HIS/HER OWN OFFICE POLICIES WHICH MAY REQUIRE PROPER INSURANCE OR PAYMENT UP FRONT BEFORE THE SPECIALIST WILL SEE YOU. It is your responsibility to call the specialist physician to make an appointment. We do not have the ability to refer patients to specialists/physicians that work with specific insurance companies. Please be advised that all financial charges or billing practices are determined by that practice, not the hospital. If your insurance company requires that you see a specialist from their approved list, it is your responsibility to contact your insurance company to make those arrangements. It is also your responsibility to follow any other requirements of your insurance company necessary to obtain coverage for claims submitted. We will bill your insurance; however, you are responsible today for any co-pay amounts. You will receive a separate bill for any services you may have received including: emergency, radiology, or pathology physicians. Patient Name:ISABEL FAUST I have received this information and was given the opportunity to ask questions. Patient/Mirror Silverer Name: Patient/Mirror Silverer Signature: Relationship to Patient: Clinician/Hospital Mirror Silverer Signature: Please Provide a Telephone Number Where You Can Be Reached: Is it Permissible To Leave a Message? Date: Electronically signed by Interface, [facility] Conversion Pasting Inspector Leia at 01/22/2023 12:54 PM CDT documented in this encounter Plan of Treatment Not on file documented as of this encounter Visit Diagnoses Not on filedocumented in this encounter
--- OUTSIDE RECORDS SUMMARY | 2025-07-29 04:47 | XMS_ITS | Encounter Summary ---
Author Organization [employer] ([place], [place], [place], [place]) Address [address] [place] [address] Care Team Providers Care Applier Name Role Phone Unavailable Primary Care Provider Unavailabl e Encounter Details Date Type Department Care Team (Late st Contact Info) Description 09/04/2020 Transcribed Document [facility] [place] [address] [place] [address] ProviderTroy MD [address] [place] [address] Social History Tobacco Use Types [...] Conversion Note - Historical ProviderMD - 09/04/2020 8:13 AM SECURITY AGENT Broset Violence Assessment Entered On: 09/04/2020 9:30 EST Performed On: 09/04/2020 8:30 EST by Georgette Michele RN Broset Violence Assessment Broset Violence Checklist of Symptoms : None Broset Violence Symptoms Subtotal : 0 Broset Violence Symptoms Indicator : Low risk (0) Georgette Michele RN - 09/04/2020 9:27 EST Electronically signed by Ying [facility] Conversion Resourcing Advisor Cerner at 01/22/2023 12:57 PM CDT documented in this encounter Plan of Treatment Not on file documented as of this encounter Visit Diagnoses Not on filedocumented in this encounter
--- OUTSIDE RECORDS SUMMARY | 2025-07-29 04:47 | XMS_ITS | Referral Summary ---
Author Organization [employer] ([place], [place], [place], [place]) Address [address] [place] [address] Care Team Providers Care Croze Cutter Helper Name Role Phone Unavailable Primary Care Provider Unavailabl e Social History Tobacco Use Types Packs/Day Years Used Date Smoking Tobacco: Never Assessed Sex and Gender Information Value Date Recorded Sex Assigned at Male 04/03/2022 5:53 PM CDT Legal Sex Male 7:15 PM CDT Gender Identity Male 04/03/2022 5:53 PM CDT Sexual Orientation Not on file Plan of Treatment Not on file
--- OUTSIDE RECORDS SUMMARY | 2025-07-29 04:47 | XMS_ITS | Encounter Summary ---
Author Organization [employer] ([place], [place], [place], [place]) Address [address] [place] [address] Care Team Providers Care Veneer Stock Grader Name Role Phone Unavailable Primary Care Provider Unavailabl e Encounter Details Date Type Department Care Team (Late st Contact Info) Description 09/04/2020 Transcribed Document [facility] [place] Family Medicine [address] [place] [address] ProviderTroy MD [address] [place] [address] Social History Tobacco Use Types [...] Conversion Note - Historical ProviderMD - 09/04/2020 8:23 AM COFFERDAM CONSTRUCTION SUPERVISOR Vital Signs ED Entered On: 09/04/2020 8:24 EST Performed On: 09/04/2020 8:23 EST by Burak Merchant Emergency Room Child Attendant Vital Signs ED Temperature Source : Oral Temperature Mode : Fahrenheit Temperature, Fahrenheit : 98.2 Deg F Clinical Temperature, C : 36.8 Deg C Oxygen Therapy Mode : Room air Peripheral Pulse Rate : 63 bpm Respiratory Rate : 16 Breaths/Min Systolic Blood Pressure : 151 mmHg (HI) Diastolic Blood Pressure : 82 mmHg Oxygen Saturation : 100 % Burak Merchant Emergency Room Child Attendant - 09/04/2020 8:23 EST Electronically signed by Ying [facility] Conversion Director Of Primary Care Cerner at 01/22/2023 1:02 PM CDT documented in this encounter Plan of Treatment Not on file documented as of this encounter Visit Diagnoses Not on filedocumented in this encounter
--- OUTSIDE RECORDS SUMMARY | 2025-07-29 04:47 | XMS_ITS | Clinical Summary ---
Author Organization [employer] ([place], [place], [place], [place]) Address [address] [place] [address] Care Team Providers Care Induction Machine Operator Name Role Phone Unavailable Primary [...]
--- OUTSIDE RECORDS SUMMARY | 2025-07-29 04:47 | XMS_ITS | Clinical Summary ---
[facility] Organization [facility] Address [address] [place] [address] Care Team Providers Care Lacemaker Name Role Phone Eliezer Harrell Primary Care Provider Allergies No known active allergies Medications diphenhydrAMINE (Benadryl Allergy) 25 MG tabletIndication s:Rash Take 2 tablets by mouth Every 6 (Six) Hours As Needed for Itching. 30 tablet 3 5 Active doxycycline (VIBRAMYCIN) 100 MG capsuleIndicatio ns:Rash Take 1 capsule by mouth 2 (Two) Times a Day. 10 capsule 5 Active famotidine (Pepcid) 20 MG tabletIndication s:Right arm weakness Take 1 tablet by mouth 2 (Two) Times a Day. 60 tablet 3 5 Active buPROPion SR (Wellbutrin SR) 150 MG 12 hr tabletIndication s:Encounter for tobacco use cessation counseling Take 1 tablet by mouth 2 (Two) Times a Day. Start one pill per day for 3 days, then start taking 1 pill every 12 hours. 120 tablet 3 5 Active predniSONE 5 MG (21) tablet therapy pack dose packIndications: Rash Take 1 tablet by mouth Daily. Take as directed on package instructions. 21 tablet 5 Active Cholecalciferol (Vitamin D) 50 MCG (1999 UT) tablet Take 1 tablet by mouth Daily. 90 tablet 5 5 Active sodium chloride ([place] Nasal [place]) 0.65 % nasal spray Administer 1 spray into the nostril(s) as directed by provider As Needed for Congestion. 60 mL 12 5 Active Sodium Chloride-Sodium Bicarb (Neti Pot Sinus Wash) 2300-700 MG kit Administer 1 kit into the nostril(s) as directed by provider Daily. 1 each 5 Active methocarbamol (ROBAXIN) 750 MG tabletIndication s:Neuropathic pain, arm,Intractable cervical neuropathic pain Take 1 tablet by mouth At Night As Needed for Muscle Spasms. 60 tablet 5 Active fluticasone (FLONASE) 50 MCG/ACT nasal sprayIndications :Acute non-recurrent sinusitis, unspecified location Administer 2 sprays into the nostril(s) as directed by provider Daily. 15.8 g 3 5 Active Immunizations Immunization Administration Dates Next Due Tdap 01/07/2017 Family History Medical History Relation Name Comments Asthma Rodríguez faust Relation Name Status Comments Rodríguez faust Alive Social History Tobacco Use Types Packs/Day Years Used Date Smoking Tobacco: Every Day Cigarettes 1.6 15.5 Started: 10/05/2012 Smokeless Tobacco: Former Comments:Would like to quit Alcohol Use Standard Drinks/Week Comments Not Currently 1 (1 standard drink = 0.6 oz pur e alcohol) PHQ-2 Answer Date Recorded Patient Health Questionnaire-2 Score 1 01/06/2025 Sex and Gender Information Value Date Recorded Sex Assigned at Not on file Legal Sex Male 4:29 PM EDT Gender Identity Not on file Sexual Orientation Not on file Last Filed Vital Signs Vital Sign Reading Time Taken Comments Blood Pressure 142/80 01/09/2025 10:28 AM EDT Pulse 60 01/09/2025 10:28 AM EDT Temperature 36.4 C (97.5 F) 01/09/2025 10:28 AM EDT Respiratory Rate 20 01/09/2025 10:28 AM EDT Oxygen Saturation 97% 01/09/2025 10:28 AM EDT Inhaled Oxygen Concentration - - Weight 76.7 kg (169 lb) 01/09/2025 10:28 AM EDT Height 198.1 cm (6' 6 ) 01/09/2025 10:28 AM EDT Body Mass Index 19.53 01/09/2025 10:28 AM EDT Plan of Treatment Health Maintenance Due Date Last Done Comments Pneumococcal Vaccine 0-49 (1 of 2 - PCV) 2012 INFLUENZA VACCINE 05/05/2025 ANNUAL PHYSICAL 01/06/2026 01/06/2025 TDAP/TD VACCINES (2 - Td or Tdap) 01/07/2027 017 HEPATITIS C SCREENING Completed 01/06/2025 Procedures Procedure Name Priority Date/Time Associated Diagnosis Comments HEPATITIS C ANTIBODY Routine 01/06/2025 8:57 AM EDT Need for hepatitis C screening test from Last 3 Months or Most Recently Relevant to Health Maintenance Results * Hepatitis C Antibody (01/06/2025 8:57 AM EDT) Hepatitis C Ab Non-Reacti ve Non-Reacti ve 01/06/2025 3:00 PM EDT [facility] Blood Structure of right upper limb / Unknown Venipuncture / Unknown 01/06/2025 8:57 AM EDT 01/06/2025 8:57 AM EDT Eliezer Harrell DO LAB BLOOD ORDERABLES Final Resu lt [facility]
[address] [place] [address], from Last 3 Months or Most Recently Relevant to Health Maintenance Insurance [facility] Care Teams Lacemaker Relationship Specialty Start Date End Date Eliezer Harrell DO [address] [facility] [address] [place], [place] [id number] PCP - General Internal Medicine 01/06/25
--- OUTSIDE RECORDS SUMMARY | 2025-07-29 04:47 | XMS_ITS | Encounter Summary ---
Author Organization [facility] Address [address] [place] [address] Care Team Providers Care Tube Sorter Name Role Phone Eliezer Harrell DO Primary Care Provider [phone] Encounter Details Date Type Department Care Team (Late st Contact Info) Description 01/06/2025 Results Follow-Up [facility] [address] [place] [address] Eliezer Harrell DO [address] [place] [address] Social History Tobacco Use Types Packs/Day Years [...] on file Sexual Orientation Not on file documented as of this encounter Functional Status documented as of this encounter Plan of Treatment Not on file documented as of this encounter Visit Diagnoses Not on filedocumented in this encounter Care Teams Tube Sorter Relationship Specialty Start Date End Date Eliezer Harrell DO [address] [place] [address] PCP - General Internal Medicine 01/06/25 documented as of this encounter
[2025-07-29 04:49] VITALS: BP 176/65; PULSE 86; RESP 16; TEMP 36.7; O2SAT 97; BMI 19.6
--- NOTE | 2025-07-29 04:49 | ED_ITS ---
Discharge Plan Disposition Patient Disposition: Home, Self-Care Prescriptions Prescriptions: New clindamycin HCl 150 mg capsule 450 mg PO TID 7 Days Qty: 63 0RF No Action amoxicillin-pot clavulanate 875-125 mg tablet 1 tab PO BID 10 Days Qty: 20 0RF ibuprofen 600 mg tablet 600 mg PO Q8H PRN (Reason: fever or pain) Qty: 20 0RF Debrox 6.5 % drops 5 drp otic (ear) DAILY 4 Days Qty: 15 0RF Rx Instructions: apply to both ears as directed Referrals Follow up/Referrals: Provider,Referral, MD [Primary Care Provider, Medical] - See instructions Activity Restrictions/Add. Instructions Additional Instructions/Restrictions: Please take antibiotics as prescribed for treatment of dental infection. Please follow-up with dentistry as soon as possible. Clinical Impressions Clinical Impression: Facial swelling Print Language Print Language: Cameroonian Discharge ED Provider: Carl Paul General Adult HPI General Chief complaint: Dental/Oral Stated complaint: infection cheek, swelling, pain Time Seen by Provider: 07/29/25 04:42 History of Present Illness HPI narrative: 30-year-old male with history of poor dentition presents for facial swelling. He reports that he saw a dentist recently and has plans to pull the rest of his teeth. However, last night he started having right jaw pain and is now having swelling in the right cheek over the mandible. He reports it is painful. Denies any purulent drainage. He reports he has been taking some leftover amoxicillin at home that he had from a previous infection. Denies any fever. Denies any shortness of breath, no difficulty swallowing. Related Data Previous Rx's ?Medication ?Instructions ?Recorded amoxicillin 875 mg-potassium 1 tab PO BID 10 days #20 tabs 03/30/25 clavulanate 125 mg tablet carbamide peroxide 6.5 % ear drops 5 drp otic (ear) DA MARILYN 4 days #15 03/30/25 (Debrox) mL ibuprofen 600 mg tablet 600 mg PO Q8H PRN fever or p ain 03/30/25 #20 tabs clindamycin HCl 150 mg capsule 450 mg (3 x 150 mg) PO TID 7 days 07/29/25 #63 caps Allergies Allergy/AdvReac Type Severity Reaction Status Date / Time No Known Allergies Allergy Verified 03/30/25 09:55 [facility] Disclaimer: The information contained in this section may have been updated after the patient was seen, as this information can be updated by other users. Medical History (Updated 07/29/25 @ 04:51 by Carl Paul MD) Dental abscess Social History Smoking Status: Current every day smoker tobacco type: cigarettes packs per day: 1 second hand exposure: Yes alcohol intake: never substance use type: marijuana current occupational status: employed Travel in the last 8 weeks?: None Have you lived/traveled outside [place] in past 30 days?: No Contact w/someone who lives/traveled outside US past 30 days?: No Exposure to someone with infectious disease in past 14 days?: No Do you have a fever (greater than 100.4 F or 38 C)?: No Have you tested positive for COVID-19?: No Exposed to someone with COVID-19 in past 14 days?: No Do you have a sore throat?: No Do you have a cough?: No Do you have any weakness?: No Do you have any diarrhea?: No Are you experiencing any unusual bleeding?: No Do you have any muscle aches/pain?: No Do you have any abdominal pain?: No Are you experiencing loss of taste or smell?: No Other Medical History Have you received the Flu Vaccine for this season: No Have you received the Pneumonia Vaccine: No ROS Obtained: Yes All systems reviewed & no additional complaints except as documented Physical Exam General General appearance: alert and in no apparent distress Head Head exam: atraumatic and normocephalic Eye Eye exam: Present normal appearance, PERRL and EOMI ENT ENT exam: Present other (Extremely poor dentition. Swelling without fluctuance over the right mandible, no significant erythema overlying. No obvious abscess. No submandibular fullness, no tenderness to the neck) Neck Neck exam: Present normal inspection and full ROM Chest Chest inspection: Present normal inspection and symmetric chest wall rise; Absent tenderness Respiratory Respiratory exam: Present normal lung sounds bilaterally; Absent respiratory distress Cardiovascular Cardiovascular exam: Present regular rate and normal rhythm Abdominal Exam Abdominal exam: Present soft; Absent distention, tenderness or guarding Extremities Exam Extremities exam: Present normal inspection; Absent edema or joint swelling Back Exam Back exam: Present normal inspection; Absent tenderness Neurological Exam Neurological exam: Present alert and oriented X3; Absent motor sensory deficit Psychiatric Psychiatric exam: Present normal affect and normal mood Skin Skin exam: Present warm, dry and normal color Lymphatic Lymphatic Findings: no adenopathy Medical Decision Making Medical Records Medical records reviewed: Yes I reviewed the patient's medical records. Screening: Per USPSTF and CDC recommendations, given the prevalence of disease in our region, it is our hospital?s policy to screen for HIV and viral Hepatitis for all patients aged 18 and over and those with ongoing risk factors. Artur Inquiry Pt receiving controlled substance: No Artur was queried for this patient: No Vital Signs: 07/29/25 04:49 07/29/25 05:00 Temperature 98.1 F 98.1 F Temperature Source Oral Oral Pulse Rate 74 Pulse Rate [Radial] 86 Respiratory Rate 16 16 Blood Pressure 160/85 H Blood Pressure [Right Arm] 176/65 H Blood Pressure Mean [Right Arm] 102 Blood Pressure Position Sitting Blood Pressure Position [Right Arm] Sitting 02 Sat by Pulse Oximetry 97 Oxygen Delivery Method Room Air Room Air Lab Data Lab results reviewed: Yes I reviewed the patient's lab results. Orders (Tests/Meds): ED MEDICATIONS Discontinued Medications Generic Name Dose Route Start Last Admin Trade Name Freq PRN Reason Stop Dose Admin Clindamycin HCl 450 mg 07/29/25 04:52 07/29/25 04:56 Clindamycin 150mg Capsule PO 07/29/25 04:53 450 mg ONCE ONE Administration Medical Decision Narrative: 30-year-old male with history of poor dentition presents for right cheek swelling. History was obtained via interactive discussion with patient, chart review. On arrival, patient is [afebrile, hemodynamically stable, satting appropriately, alert, oriented x4, GCS 15], moving all extremities spontaneously. Full physical exam performed and significant for right cheek swelling without fluctuance, erythema, submandibular fullness Differential includes but is not limited to dental infection, abscess, cellulitis, Bar's, Lemierre's. Patient was given clindamycin for treatment of dental infection. I considered obtaining CT imaging and labs, but I do not think it is indicated at this time. No obvious abscess to drain. Was discharged with prescription for clindamycin and will follow-up with dentistry as soon as possible. Procedures Risk/Benefits of Procedure(s) Were Explained: Yes Critical Care Critical Care Time Critical Care Time: No
[2025-07-29] MEDS: CLINDAMYCIN 150MG CAPSULE 450 MG PO (04:56)
[2025-07-29 05:00] VITALS: BP 160/85; PULSE 74; RESP 16; TEMP 36.7; O2SAT 100
== END 2025-07-29 05:01 | disposition home or self-care (01) ==
PROVIDERS: Emergency Provider Emergency Medicine
DX: R68.84 Jaw pain (principal); R22.0 Localized swelling, mass and lump, head; F17.210 Nicotine dependence, cigarettes, uncomplicated
CPT/HCPCS: 99283